=== PATIENT | male | born 2005 | race American Indian/Alaskan Native ===

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

== ENCOUNTER 2025-01-27 05:02 | Emergency (ER) | payer OTHER ==
[2025-01-27] MEDS ORDERED: Sodium Chloride 0.9% 10 ML Syringe FLUSH PRN (05:17)
[2025-01-27] MEDS ORDERED: Bacitracin Oint 1 GM U/D Packet TOP ONE (05:20)
[2025-01-27] MEDS ORDERED: Lactated Ringers 1,000 ML IV ONE (05:25)
[2025-01-27 05:27] LABS: PLATELET COUNT,PLT 273 10^3/uL (150-450); RED BLOOD CELL COUNT 4.53 10^6/uL (4.6-6.2); WHITE BLOOD CELL COUNT,WBC 16.3 10^3/uL (5.0-10.0)
[2025-01-27 05:29] LABS: BASOPHILS PERCENT AUTO 0.2 % (0.0-1.0); EOSINOPHILS PERCENT AUTO 0.3 % (1.0-3.0); LYMPHOCYTES PERCENT AUTO 55.0 % (20.5-50.1); MONOCYTES PERCENT AUTO 9.2 % (2-8); NEUTROPHILS PERCENT AUTO 35.3 % (42.2-75.2)
[2025-01-27 05:44] LABS: INR 1.1 (0.9-1.2); PTT,PARTIAL THROMBOPLSTIN TIME 27.3 SEC (22.0-34.0)
[2025-01-27 05:45] LABS: A/G RATIO 1.1; ALANINE AMINOTRANSFERASE,ALT 89 U/L (16-63); ASPARTATE AMNIOTRANSFERASE,AST 45 U/L (15-37); BILIRUBIN TOTAL 0.5 mg/dL (0.2-1.0); BLOOD UREA NITROGEN,BUN 13 mg/dL (7-18); CARBON DIOXIDE,CO2 27 mmol/L (21-32); CHLORIDE,CL 104 mmol/L (98-107); CREATININE 0.95 mg/dL (0.70-1.30); GLUCOSE RANDOM 98 mg/dL (70-99); POTASSIUM,K 3.2 mmol/L (3.5-5.1); PROTEIN TOTAL,TP 7.4 g/dL (6.4-8.2); SODIUM,NA 140 mmol/L (136-145)
[2025-01-27 05:47] LABS: ESTIMATED GFR 118 mL/min (>=60)
[2025-01-27 05:48] LABS: BAND PERCENT MAN 4 %; EOSINOPHILS PERCENT MAN 1 % (1-3); LYMPHOCYTES PERCENT MAN 59 % (20-50); MONOCYTES PERCENT MAN 4 % (2-8); SEG NEUTROPHILS PERCENT MAN 32 % (42-75)
[2025-01-27] MEDS: Iopamidol 755 Mg/ML 100 ML Bottle IVPUSH ONE (06:09)
[2025-01-27] MEDS ORDERED: Ondansetron 4 MG/2 ML SDV IVPUSH ONE (06:18)
[2025-01-27] MEDS ORDERED: Diphtheria,Pertussis(Acell),Tetanus Vaccine 0.5 ML Syringe IM ONE (07:13)
[2025-01-27] MEDS: Lidocaine 1% with EPINEPHrine 1:100,000 20 ML MDV INJECT ONE (07:25)
[2025-01-27] MEDS ORDERED: MVI, Adult with Vitamin K 10 ML, Folic Acid 1 MG, Thiamine 100 MG in Lactated Ringers 1... IV ONE (08:26)
== END 2025-01-27 10:57 | disposition home or self-care (01) ==
LOC: DL.ED 05:02
DX: S61.512A Laceration without foreign body of left wrist, initial encounter (principal); M54.50 Low back pain, unspecified; V87.7XXA Person injured in collision between other specified motor vehicles (traffic), initial encounter
CPT/HCPCS: 12001; 36415; 70450; 71046; 71260; 72125; 73110; 74177; 80053; 85025; 85610; 85730; 90471; 96365; 96375; 96376; 99285; Q9967